=== PATIENT | male | born 1965 | race Caucasian/White ===

== ENCOUNTER 2024-02-22 07:20 | Emergency (ER) | payer BC ==
[2024-02-22 08:05] LABS: HEMOGLOBIN 16.2 g/dL (12.9-17.7); MEAN CORPUSCULAR HEMOGLOBIN 31.6 pg (27.0-33.3); MEAN CORPUSCULAR HGB CONC 34.5 g/dL (28.7-35.3); MEAN CORPUSCULAR VOLUME 91.6 fL (80.8-98.7); MEAN PLATELET VOLUME 8.6 fL (6.7-11.0); PLATELET COUNT,PLT 284 x10(3)uL (117-477); RED BLOOD CELL COUNT 5.13 x10(6)uL (3.90-5.90); RED CELL DISTRIBUTION WIDTH 13.5 % (12.4-15.0); WHITE BLOOD CELL COUNT,WBC 21.4 x10-3/uL (3.2-10.1)
[2024-02-22 08:11] LABS: BLOOD UREA NITROGEN,BUN 14 mg/dL (7-18); BUN/CREATININE RATIO 11.7 (9-20); CALCIUM 8.7 mg/dL (8.6-10.2); CARBON DIOXIDE,CO2 29 mmol/L (21-32); CHLORIDE,CL 95 mmol/L (100-110); CREATININE 1.2 mg/dL (0.70-1.30); ESTIMATED GFR 69 mL/min (>60); GLUCOSE RANDOM 127 mg/dL (80-116); POTASSIUM,K 4.1 mmol/L (3.5-5.3); SODIUM,NA 132 mmol/L (135-145)
[2024-02-22 08:17] LABS: A/G RATIO 0.8; ALANINE AMINOTRANSFERASE,ALT 26 U/L (12-36); ALBUMIN 3.2 g/dL (3.2-4.6); ALKALINE PHOSPHATASE 82 IU/L (56-112); ASPARTATE AMNIOTRANSFERASE,AST 20 IU/L (5-25); BILIRUBIN TOTAL 0.9 mg/dL (0.1-1.3); PROTEIN TOTAL,TP 7.3 g/dL (6.0-8.0)
[2024-02-22 08:21] LABS: LYMPHOCYTES PERCENT MAN 9 % (13-37); MONOCYTES PERCENT MAN 9 % (4-12); SEG NEUTROPHILS PERCENT MAN 82 % (46-82)
[2024-02-22] MEDS: SUMAtriptan 6 MG/0.5 ML SDV SUBCUT ONE (08:35)
[2024-02-22] MEDS: Ondansetron 4 MG Tab.DIS PO ONE (08:35)
== END 2024-02-22 10:00 | disposition home or self-care (01) ==
LOC: FB.ED 07:20
DX: J18.9 Pneumonia, unspecified organism (principal); F17.210 Nicotine dependence, cigarettes, uncomplicated; Z79.899 Other long term (current) drug therapy; Z88.5 Allergy status to narcotic agent
CPT/HCPCS: 36415; 70450; 71045; 80053; 84484; 85025; 87635; 93005; 93010; 96372; 99284; 99285; J3030; Q0162; U0002